=== PATIENT | female | born 2000 | race Two or more races ===

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

== ENCOUNTER 2022-05-29 12:37 | Emergency (ER) | payer MEDICAID ==
[~2022-05-29] VITALS: Ht 170.2 cm; Wt 60.4 kg
[2022-05-29 12:37] VITALS: BP 113/70
[~2022-05-29 12:37] MED LIST changes: +MIRT30TA3 PO
[2022-05-29 13:38] LABS: BASO # 0.1 10^3/uL (0.0-0.2); BASO % 0.7 % (0.0-1.0); EOS # 0.2 10^3/uL (0.0-0.5); EOS % 2.4 % (0.0-3.0); HEMOGLOBIN 12.8 g/dl (12.0-15.5); LYMPH # 2.5 10^3/uL (1.5-5.0); LYMPH % 33.1 % (24.0-44.0); MEAN CORPUSCULAR HEMOGLOBIN 28.3 pg (27.0-33.0); MEAN CORPUSCULAR HGB CONC 31.2 g/dl (32.0-36.5); MEAN CORPUSCULAR VOLUME 90.7 fl (80.0-96.0); MONO # 0.8 10^3/uL (0.0-0.8); MONO % 10.1 % (2.0-8.0); NEUTROPHILS % 53.4 % (36.0-66.0); PLATELET COUNT, AUTOMATED 228 10^3/uL (150-450); RED BLOOD COUNT 4.52 10^6/uL (4.00-5.40); WHITE BLOOD COUNT 7.5 10^3/uL (4.0-10.0)
[2022-05-29 14:19] LABS: BLOOD UREA NITROGEN 15 MG/DL (7-18); CALCIUM LEVEL 9.6 MG/DL (8.5-10.1); CARBON DIOXIDE LEVEL 27 MEQ/L (21-32); CHLORIDE LEVEL 107 MEQ/L (98-107); CREATININE FOR GFR 0.97 MG/DL (0.55-1.30); GLOMERULAR FILTRATION RATE > 60.0 (>60); GLUCOSE, FASTING 89 MG/DL (70-100); HCG, SERUM QUANTITATIVE < 1.0 MIU/ML; POTASSIUM SERUM 4.2 MEQ/L (3.5-5.1); SODIUM LEVEL 138 MEQ/L (136-145)
== END 2022-05-29 15:11 | disposition left against medical advice (07) ==
LOC: M ED 12:37
DX: Z53.29 Procedure and treatment not carried out because of patient's decision for other reasons (principal)

== ENCOUNTER 2022-06-17 07:39 | Emergency (ER) | payer MEDICAID, OTHER ==
[~2022-06-17] VITALS: Ht 170.2 cm; Wt 59.8 kg
[2022-06-17] MEDS ORDERED: ACETAMINOPHEN 500 MG TAB PO ONE (09:30)
[2022-06-17] MEDS ORDERED: ONDANSETRON 4MG 2ML VIAL IV ONE (10:50)
[2022-06-17] MEDS ORDERED: cefTRIAXone SOD 1 GM in D5W MINI-BAG PLUS 50 ML IV ONE (10:50)
[2022-06-17] MEDS ORDERED: NS 1,000 ML IV ONE (10:50)
[2022-06-17 11:24] LABS: HEMATOCRIT 40.3 % (36.0-47.0); HEMOGLOBIN 12.9 g/dl (12.0-15.5); MEAN CORPUSCULAR HEMOGLOBIN 28.7 pg (27.0-33.0); MEAN CORPUSCULAR VOLUME 89.8 fl (80.0-96.0); PLATELET COUNT, AUTOMATED 211 10^3/uL (150-450); RED BLOOD COUNT 4.49 10^6/uL (4.00-5.40); WHITE BLOOD COUNT 8.6 10^3/uL (4.0-10.0)
[2022-06-17 11:58] LABS: ALBUMIN 3.9 GM/DL (3.2-5.2); ALT/SGPT 16 U/L (12-78); BILIRUBIN,TOTAL 0.7 MG/DL (0.2-1.0); BLOOD UREA NITROGEN 11 MG/DL (7-18); CARBON DIOXIDE LEVEL 24 MEQ/L (21-32); CHLORIDE LEVEL 104 MEQ/L (98-107); CREATININE FOR GFR 1.14 MG/DL (0.55-1.30); GLOMERULAR FILTRATION RATE > 60.0 (>60); GLUCOSE, FASTING 96 MG/DL (70-100); POTASSIUM SERUM 3.8 MEQ/L (3.5-5.1); SODIUM LEVEL 134 MEQ/L (136-145); TOTAL PROTEIN 7.7 GM/DL (6.4-8.2)
[2022-06-17] MEDS ORDERED: MACR100C43 PO (12:13)
[2022-06-17] MEDS ORDERED: ACET325C5 PO (12:15)
[2022-06-17 12:27] VITALS: BP 93/51
== END 2022-06-17 12:30 | disposition home or self-care (01) ==
LOC: M ED 07:39
DX: N39.0 Urinary tract infection, site not specified (principal); Z91.018 Allergy to other foods
CPT/HCPCS: 80053; 81000; 81015; 85027; 87088; 87186; 96365; 99284; J0696; J2405

== ENCOUNTER 2022-07-15 02:55 | Inpatient (IN) | payer OTHER ==
[~2022-07-15] VITALS: Ht 170.2 cm; Wt 60.0 kg
[~2022-07-15 02:55] MED LIST changes: +ACET325C5 PO; +MACR100C43 PO
[2022-07-15] MEDS ORDERED: IBUPROFEN 600MG TAB PO ONE (03:10)
[2022-07-15] MEDS ORDERED: cefTRIAXone SOD 1 GM in D5W MINI-BAG PLUS 50 ML IV ONE (07:45)
[2022-07-15] MEDS ORDERED: NS 1,000 ML IV ONE ×2 (07:45→11:25)
[2022-07-15] MEDS ORDERED: ISOVUE-370 76% 100ML VIAL As Ordered ONE (08:24)
[2022-07-15 08:37] LABS: BASO % 0.2 % (0.0-1.0); HEMATOCRIT 42.8 % (36.0-47.0); HEMOGLOBIN 13.7 g/dl (12.0-15.5); LYMPH # 1.1 10^3/uL (1.5-5.0); LYMPH % 8.9 % (24.0-44.0); MEAN CORPUSCULAR HEMOGLOBIN 28.5 pg (27.0-33.0); MONO # 1.1 10^3/uL (0.0-0.8); MONO % 8.9 % (2.0-8.0); NEUTROPHILS # 10.2 10^3/uL (1.5-8.5); NEUTROPHILS % 81.7 % (36.0-66.0); PLATELET COUNT, AUTOMATED 190 10^3/uL (150-450); RED BLOOD COUNT 4.81 10^6/uL (4.00-5.40); WHITE BLOOD COUNT 12.4 10^3/uL (4.0-10.0)
[2022-07-15 09:09] LABS: BILIRUBIN,DIRECT 0.4 MG/DL (0.0-0.2); BILIRUBIN,TOTAL 1.3 MG/DL (0.2-1.0); TOTAL PROTEIN 8.2 GM/DL (6.4-8.2)
[2022-07-15] MEDS ORDERED: NS 1,000 ML IV SCH ×3 (11:15→17:30)
[2022-07-15] MEDS ORDERED: ACET1TAB55 PO (11:27)
[2022-07-15] MEDS ORDERED: HOME MED LIST COMPLETE! XX SCH (11:50)
[2022-07-15] MEDS ORDERED: MOM 30ML SUSPENSION UDC PO PRN (12:00)
[2022-07-15] MEDS: NS 1,000 ML IV SCH ×2 (12:00→21:52)
[2022-07-15 12:27] LABS: ALBUMIN 3.2 GM/DL (3.2-5.2); ALT/SGPT 10 U/L (12-78); BILIRUBIN,TOTAL 0.8 MG/DL (0.2-1.0); BLOOD UREA NITROGEN 15 MG/DL (7-18); CALCIUM LEVEL 8.4 MG/DL (8.5-10.1); CARBON DIOXIDE LEVEL 25 MEQ/L (21-32); CHLORIDE LEVEL 100 MEQ/L (98-107); CREATININE FOR GFR 0.94 MG/DL (0.55-1.30); GLOMERULAR FILTRATION RATE > 60.0 (>60); GLUCOSE, FASTING 90 MG/DL (70-100); POTASSIUM SERUM 3.7 MEQ/L (3.5-5.1); SODIUM LEVEL 131 MEQ/L (136-145); TOTAL PROTEIN 6.9 GM/DL (6.4-8.2)
[2022-07-15] MEDS: HEPARIN SOD (PORCINE) 5000UNITS/ML 1ML VIAL/SYRINGE SC SCH ×2 (14:30→22:37)
[2022-07-15] MEDS: ACETAMINOPHEN TAB 650MG DOSE (2X325MG) PO PRN ×2 (14:36→21:20)
[2022-07-15 23:30] VITALS: BP 104/66
[2022-07-16] MEDS: ACETAMINOPHEN TAB 650MG DOSE (2X325MG) PO PRN (04:11)
[2022-07-16 05:25] VITALS: BP 104/63
[2022-07-16] MEDS: NS 1,000 ML IV SCH (05:54)
[2022-07-16] MEDS: HEPARIN SOD (PORCINE) 5000UNITS/ML 1ML VIAL/SYRINGE SC SCH (05:54)
[2022-07-16] MEDS ORDERED: LACTOBACILLUS ACIDOPHILUS CAP (BACID) PO SCH (08:00)
[2022-07-16] MEDS ORDERED: cefTRIAXone SOD 1 GM in D5W MINI-BAG PLUS 50 ML IV SCH ×2 (08:00→09:00)
[2022-07-16 10:16] LABS: BLOOD UREA NITROGEN 9 MG/DL (7-18); CALCIUM LEVEL 8.2 MG/DL (8.5-10.1); CARBON DIOXIDE LEVEL 23 MEQ/L (21-32); CHLORIDE LEVEL 108 MEQ/L (98-107); CREATININE FOR GFR 0.79 MG/DL (0.55-1.30); GLOMERULAR FILTRATION RATE > 60.0 (>60); GLUCOSE, FASTING 88 MG/DL (70-100); MAGNESIUM LEVEL 1.9 MG/DL (1.8-2.4); POTASSIUM SERUM 3.7 MEQ/L (3.5-5.1); SODIUM LEVEL 138 MEQ/L (136-145)
[2022-07-16 10:38] LABS: BASO % 0.3 % (0.0-1.0); EOS # 0.1 10^3/uL (0.0-0.5); EOS % 0.6 % (0.0-3.0); HEMATOCRIT 35.5 % (36.0-47.0); LYMPH # 1.5 10^3/uL (1.5-5.0); LYMPH % 18.6 % (24.0-44.0); MEAN CORPUSCULAR HEMOGLOBIN 28.9 pg (27.0-33.0); MEAN CORPUSCULAR HGB CONC 32.4 g/dl (32.0-36.5); MEAN CORPUSCULAR VOLUME 89.2 fl (80.0-96.0); MONO % 20.3 % (2.0-8.0); NEUTROPHILS # 4.7 10^3/uL (1.5-8.5); NEUTROPHILS % 59.8 % (36.0-66.0); PLATELET COUNT, AUTOMATED 160 10^3/uL (150-450); RED BLOOD COUNT 3.98 10^6/uL (4.00-5.40); WHITE BLOOD COUNT 7.9 10^3/uL (4.0-10.0)
[2022-07-16 10:43] LABS: MONO # 1.6 10^3/uL (0.0-0.8)
[2022-07-16 10:44] LABS: HEMOGLOBIN 11.5 g/dl (12.0-15.5)
[2022-07-16] MEDS ORDERED: CEFD300C41 PO (11:37)
== END 2022-07-16 13:25 | disposition home or self-care (01) | DRG 463 ==
LOC: EDBD 02:55 → M ED 02:55 → M ED INP 11:36 → ENRESERV 22:57 → M MSPAV 23:42
PROVIDERS: ADMIT Internal Medicine; ATTEND Internal Medicine
DX: N12 Tubulo-interstitial nephritis, not specified as acute or chronic (principal); F32.A Depression, unspecified; N83.201 Unspecified ovarian cyst, right side; R11.10 Vomiting, unspecified; F41.9 Anxiety disorder, unspecified; F43.10 Post-traumatic stress disorder, unspecified; Z91.018 Allergy to other foods

== ENCOUNTER → 2022-08-25 | Outpatient (CLI) | payer OTHER ==
[~2022-08-25] MED LIST changes: +ACET1TAB55 PO; +CEFD300C41 PO
== END ==
LOC: M PLALAB 09:18
PROVIDERS: ATTEND Advanced Practice Midwife
DX: N91.2 Amenorrhea, unspecified (principal)

== ENCOUNTER → 2022-11-12 | Outpatient (CLI) | payer OTHER | LOC: M WHC 13:40 | PROVIDERS: ATTEND Advanced Practice Midwife | DX: O32.1XX0 Maternal care for breech presentation, not applicable or unspecified (principal); Z36.89 Encounter for other specified antenatal screening; Z3A.19 19 weeks gestation of pregnancy; O28.3 Abnormal ultrasonic finding on antenatal screening of mother ==